=== PATIENT | female | born 1960 | race Hispanic/Latino ===

== ENCOUNTER 2022-03-21 10:58 | Inpatient (IN) | payer SELFPAY ==
[2022-03-21] MEDS ORDERED: MORPHINE 4 MG/1 ML INJ IM ONE (11:04)
[2022-03-21] MEDS ORDERED: ONDANSETRON 4 MG ODT TAB PO ONE (11:04)
--- NOTE | 2022-03-21 11:46 | XRay Report ---
RIGHT ELBOW 4 VIEW(S) INDICATION / CLINICAL INFORMATION: fall, pain and swelling status post fall COMPARISON: None available. FINDINGS: BONES / JOINT(S): Mildly displaced transverse fracture through the base of the olecranon process of t he ulna. The olecranon process fracture fragment is displaced by 1.5 cm. The distal humeral or radial head fracture. Moderate joint effusion. SOFT TISSUES: Prominent posterior soft tissue swelling. ADDITIONAL FINDINGS: None. IMPRESSION: 1. Mildly displaced olecranon process fracture. Signer Name: Sheyla Martin MD Signed: 03/21/2022 11:42 AM Workstation Name: [email or web address]
[2022-03-21] MEDS ORDERED: HYDROmorphone 1 MG/1 ML INJ IV ONE (15:25)
--- NOTE | 2022-03-21 16:41 | Emergency Department Report ---
ED Upper Extremity Inj HPI - General Chief Complaint: Extremity Injury, Upper Stated Complaint: RT ELBOW INJURY/FALL Time Seen by Provider: 03/21/22 13:48 Source: patient Mode of arrival: Ambulatory Limitations: No Limitations - History of Present Illness Initial Comments: This is a 61-year-old female nontoxic, well nourished in appearance, presents to the ED with c/o of right elbow pain x 1day. Patient stated that she had a mechanical trip and fall to the right elbow area. Denies any other injuries or trauma. Patient denies any numbness, tingling, fever, chills, nausea, vomiting, chest pain, shortness of breath, headache, stiff neck. Patient denies any joint swelling or joint redness. Patient stated has decreased range of motion. Patient denies any allergies. MD Complaint: Injury to:: left, elbow -: days(s) Other Extremity Injury: Elbow: Right Severity scale (0 -10): 10 Improves With: immobilization Worsens With: movement of extremity Context: fall Associated Symptoms: denies other symptoms. denies: weakness, numbness, neck pain, suspects foreign body, nausea/vomiting, heard/felt popping sensat - Related Data Allergies Allergy/AdvReac Type Severity Reaction Status Date / Time No Known Allergies Allergy Verified 03/21/22 11:06 ED Review of Systems ROS: Stated complaint: RT ELBOW INJURY/FALL Other details as noted in HPI Comment: All other systems reviewed and negative Constitutional: denies: chills, fever Eyes: denies: eye pain, eye discharge, vision change ENT: denies: ear pain, throat pain Respiratory: denies: cough, shortness of breath, wheezing Cardiovascular: denies: chest pain, palpitations Endocrine: no symptoms reported Gastrointestinal: denies: abdominal pain, nausea, diarrhea Genitourinary: denies: urgency, dysuria, discharge Musculoskeletal: denies: back pain, joint swelling, arthralgia Skin: denies: rash, lesions Neurological: denies: headache, weakness, paresthesias Psychiatric: denies: anxiety, depression Hematological/Lymphatic: denies: easy bleeding, easy bruising ED Physical Exam - General Limitations: No Limitations General appearance: alert, in no apparent distress - Head Head exam: Present: atraumatic, normocephalic - Eye Eye exam: Present: normal appearance - Neck Neck exam: Present: normal inspection, full ROM. Absent: lymphadenopathy - Respiratory Respiratory exam: Absent: respiratory distress - Cardiovascular Cardiovascular Exam: Present: regular rate - Extremities Exam Extremities exam: Present: tenderness, normal capillary refill, joint swelling - Expanded Upper Extremity Exam Right General: Present: normal inspection Shoulder Exam: Present: normal inspection, full ROM. Absent: tenderness, swelling Upper Arm exam: Present: normal inspection, full ROM. Absent: tenderness, swelling Elbow exam: Present: tenderness, swelling, ecchymosis, deformity, effusion. Absent: abrasion, laceration, crepidus, dislocation, erythema Forearm Wrist exam: Present: normal inspection, full ROM. Absent: tenderness, swelling Hand Wrist exam: Present: normal inspection, full ROM. Absent: tenderness, swelling Vascular: Present: normal capillary refill. Absent: vascular compromise (Neurovascular within normal limits) - Back Exam Back exam: Present: normal inspection, full ROM. Absent: tenderness, CVA tenderness (R), CVA tenderness (L), muscle spasm, paraspinal tenderness, vertebral tenderness, rash noted - Neurological Exam Neurological exam: Present: alert, oriented X3, normal gait - Psychiatric Psychiatric exam: Present: normal affect, normal mood - Skin Skin exam: Present: warm, dry, intact, normal color. Absent: rash ED Course Vital Signs 03/21/22 03/21/22 11:02 11:30 Temperature 97.4 F L Pulse Rate 78 Respiratory 18 14 Rate Blood Pressure 127/60 [Left] O2 Sat by Pulse 99 Oximetry - Consultations Consultation #1: 03/21/22 16:46 Patient has been consulted with Lasha Robertson about patient history, physical exam, and imaging results and patient to received a sling with splint and it pain is not controlled to admit with hospitalist Consultation #2: 03/21/22 16:48 Patient has been consulted with Dr. Wheat about patient history, physical exam, and imaging results and accepts patient to services. ED Medical Decision Making - Radiology Data [facility] [address] [place] [address] XRay Report Signed with Jamar Patient: INA ALEXANDER MR#: [id number] : 1960 Acct:[id number] Age/Sex: 61 / F ADM Date: 03/21/22 Loc: ED Attending Dr: Ordering Physician: LAMAR BAEZ Date of Service: 03/21/22 Procedure(s): XR elbow 3+V RT Accession Number(s): [id number] cc: LAMAR BAEZ Fluoro Time In Minutes: ADDENDUM Accounting Machine Operator error in the original report in the Findings section. Please see correction below. No distal humeral or radial head fracture. Signer Name: Sheyla Martin MD Signed: 03/21/2022 1:47 PM Workstation Name: [id number] Addendum Transcribed By: ASIA Addendum Dictated By: Panchito Martin MD Addendum Electronically Authenticated By: Panchito Martin MD Addendum Signed Date/Time: 03/21/221346 DD/ /30/1346 TD/TT: / RIGHT ELBOW 4 VIEW(S) INDICATION / CLINICAL INFORMATION: fall, pain and swelling status post fall COMPARISON: None available. FINDINGS: BONES / JOINT(S): Mildly displaced transverse fracture through the base of the olecranon process of the ulna. The olecranon process fracture fragment is displaced by 1.5 cm. The distal humeral or radial head fracture. Moderate joint effusion. SOFT TISSUES: Prominent posterior soft tissue swelling. ADDITIONAL FINDINGS: None. IMPRESSION: 1. Mildly displaced olecranon process fracture. Signer Name: Sheyla Martin MD Signed: 03/21/2022 11:42 AM Workstation Name: [id number] Transcribed By: DT Dictated By: Panchito Martin MD Electronically Authenticated By: Panchito Martin MD Signed Date/Time: 03/21/22 1142 DD/ 1141 TD/TT: -- [Addendum Report Added by PANCHITO MARTIN at 2022-03-21 13:53:37] [facility] [address] [place] [address] XRay Report Signed Patient: INA ALEXANDER MR#: [id number] : 1960 Acct:[id number] Age/Sex: 61 / F ADM Date: 03/21/22 Loc: ED Attending Dr: Ordering Physician: LAMAR BAEZ Date of Service: 03/21/22 Procedure(s): XR elbow 3+V RT Accession Number(s): [id number] cc: LAMAR BAEZ Fluoro Time In Minutes: RIGHT ELBOW 4 VIEW(S) INDICATION / CLINICAL INFORMATION: fall, pain and swelling status post fall COMPARISON: None available. FINDINGS: BONES / JOINT(S): Mildly displaced transverse fracture through the base of the olecranon process of the ulna. The olecranon process fracture fragment is displaced by 1.5 cm. The distal humeral or radial head fracture. Moderate joint effusion. SOFT TISSUES: Prominent posterior soft tissue swelling. ADDITIONAL FINDINGS: None. IMPRESSION: 1. Mildly displaced olecranon process fracture. Signer Name: Sheyla Martin MD Signed: 03/21/2022 11:42 AM Workstation Name: [id number] Transcribed By: ASIA Dictated By: Panchito Martin MD Electronically Authenticated By: Panchito Martin MD Signed Date/Time: 03/21/22 1142 DD/ 1141 TD/TT: - Medical Decision Making 61-year-old female that presents with displaced left elbow fracture. Patient stable and was examined by me. Patient consulted with hospitalist. Despite giving pain medication patient is still in pain. At this time patient be admitted for intractable pain as well as displaced left elbow fracture. Admitted with hospitalist. At time of admission, the patient does not seem toxic or ill in appearance. No acute signs of distress noted. Patient agrees to admission treatment plan of care. No further questions noted by the patient. Critical care attestation.: If time is entered above; I have spent that time in minutes in the direct care of this critically ill patient, excluding procedure time. ED Disposition Clinical Impression: Intractable pain Fracture of left olecranon process Qualifiers: Encounter type: initial encounter Fracture type: closed Qualified Code(s): S52.022A - Displaced fracture of olecranon process without intraarticular extension of left ulna, initial encounter for closed fracture Disposition: ADMITTED INPATIENT Is pt being admited?: Yes Condition: Stable Time of Disposition: 16:50
--- NOTE | 2022-03-21 16:48 | History and Physical Report ---
History of Present Illness Chief complaint: I fell down and hurt my arm History of present illness: 61 YO Female with OA, Vascular Dementia, Cerebral Atherosclerosis presents to ED for evaluation. Patient reports "I fell down and hurt my arm". Patient states that she tripped and fell from a standing position and landed on her right elbow. Patient states that she experienced pain in her right elbow after impacting left elbow on the ground. Patient states that pain is 10/10, constant, worsened with movement, relieved with movement. Patient also reports pain and swelling to right elbow after fall. Patient transported to [facility] via private vehicle for further care and evaluation of the aforementioned symptoms. The patient was seen and evaluated in the emergency department. All lab and imaging studies reviewed. Patient found to have displaced right olecranon process fracture. Orthopedic surgery service consulted in ED. Patient admitted to medical floor due to increased risk of worsening symptoms after medical stabilization. Patient pending surgical intervention in a.m. Patient fever, chills, chest pain, palpitation, adductive cough, skin rash, recent contact, syncope, known ill contacts, or known exposure to COVID-19. No prior admission for review. No medication listed at time of admission for reconciliation. Advanced care planning conducted in ED. Past History Past Medical History: other (See HPI) Past Surgical History: No surgical history, Other (Reviewed) Social history: . denies: smoking, alcohol abuse, prescription drug abuse Family history: no significant family history, other (Reviewed) Medications and Allergies Allergies Allergy/AdvReac Type Severity Reaction Status Date / Time No Known Allergies Allergy Verified 03/21/22 11:06 Review of Systems Constitutional: no weight loss, no weight gain, no fever, no chills Ears, nose, mouth and throat: no ear pain, no tinnitis, no nose pain, no nasal congestion, no nasal discharge Breasts: no change in shape, no swelling, no mass Cardiovascular: no chest pain, no palpitations, no rapid/irregular heart beat, no syncope, no lightheadedness, no shortness of breath, no dyspnea on exertion Respiratory: no cough, no cough with sputum, no excessive sputum, no hemoptysis, no shortness of breath Gastrointestinal: no abdominal pain, no nausea, no change in bowel habits, no hematemesis Genitourinary Female: no pelvic pain, no flank pain, no dysuria, no urinary frequency, no urgency Rectal: no pain, no incontinence, no bleeding Musculoskeletal: no neck stiffness, no neck pain, no shooting arm pain, no other Integumentary: no rash, no pruritis, no redness, no sores, no wounds Neurological: no head injury, no paralysis, no weakness, no parathesias, no seizures, no tremors, no lack of coordination Psychiatric: no anxiety, no change in sleep habits, no hypersomnia, no change in appetite, no change in libido, no disorientation Endocrine: no cold intolerance, no excessive thirst, no excessive sweating, no flushing Hematologic/Lymphatic: no easy bruising, no easy bleeding Allergic/Immunologic: no urticaria, no wheezing Exam - Constitutional Vitals: Temp Pulse Resp BP Pulse Ox 97.4 F L 78 14 127/60 99 03/21/22 11:02 03/21/22 11:02 03/21/22 11:30 03/21/22 11:02 03/21/22 11:02 General appearance: Present: mild distress - EENT Eyes: Present: PERRL ENT: hearing intact, clear oral mucosa - Neck Neck: Present: supple, normal ROM - Respiratory Respiratory effort: normal Respiratory: bilateral: CTA - Cardiovascular Heart Sounds: Present: S1 & S2. Absent: rub, click - Extremities Extremities: pulses symmetrical, No edema Extremity abnormal: edema, tenderness, other (Right elbow) Peripheral Pulses: within normal limits - Abdominal General gastrointestinal: Present: soft, non-tender, non-distended, normal bowel sounds Female genitourinary: Present: normal - Integumentary Integumentary: Present: clear, warm, dry - Musculoskeletal Musculoskeletal: gait normal, strength equal bilaterally - Psychiatric Psychiatric: appropriate mood/affect, intact judgment & insight - Neurologic Neurologic: CNII-XII intact, moves all extremities Assessment and Plan - Patient Problems (1) Fracture of left olecranon process Current Visit: Yes Status: Acute Qualifiers: Encounter type: initial encounter Fracture type: closed Qualified Code(s): S52.022A - Displaced fracture of olecranon process without intraarticular extension of left ulna, initial encounter for closed fracture Plan to address problem: X-ray right elbow, (2) Vascular dementia Current Visit: Yes Status: Acute Qualifiers: Dementia behavioral disturbance: without behavioral disturbance Qualified Code(s): F01.50 - Vascular dementia without behavioral disturbance Plan to address problem: Verbal prompting, verbal redirection, benzodiazepine therapy as clinically indicated. (3) Cerebral atherosclerosis Current Visit: Yes Status: Acute Plan to address problem: Risk factor reduction, antiplatelet therapy as clinically indicated, supportive care. (4) Osteoarthritis Current Visit: Yes Status: Acute Plan to address problem: Pain control, NSAID therapy as clinically indicated. (5) Intractable pain Current Visit: Yes Status: Acute Plan to address problem: Pain control, pain control protocol. Continue medical management. (6) DVT prophylaxis Current Visit: Yes Status: Acute Plan to address problem: SCD to bilateral lower extremities while in bed (7) Advance care planning Current Visit: Yes Status: Acute Plan to address problem: Disease education conducted, care plan discussed, diagnoses discussed, prognosis discussed, patient acknowledges understanding and agreement with care plan, +30 minutes. (8) Preventative health care Current Visit: Yes Status: Acute Plan to address problem: Patient counseled regarding home safety precaution, outpatient follow-up with primary care physician for all age and risk factor appropriate screening test. +30 minutes.
[2022-03-21] MEDS ORDERED: ALBUTEROL 2.5 MG/3 ML NEBU IH PRN (17:00)
[2022-03-21] MEDS ORDERED: ACETAMINOPHEN 325 MG TAB PO PRN (17:00)
[2022-03-21] MEDS ORDERED: HYDROmorphone 0.5 MG/0.5 ML INJ IV PRN (18:00)
[2022-03-21] MEDS ORDERED: ONDANSETRON 4 MG/2 ML INJ IV PRN (18:00)
[2022-03-21] MEDS: oxyCODONE /ACETAMINOPHEN 5-325MG TAB PO PRN (20:14)
[2022-03-21] MEDS: SODIUM CHLORIDE 0.9% 1000 ML 1,000 ML IV SCH (20:19)
[2022-03-21] MEDS: HYDROmorphone 0.5 MG/0.5 ML INJ IV PRN (22:51)
[2022-03-22 00:44] LABS: Alanine Aminotransferase 19 units/L (7-56); Albumin 4.1 g/dL (3.9-5); Blood Urea Nitrogen 10 mg/dL (7-17); Calcium 9.4 mg/dL (8.4-10.2); Hemolysis Index 39
[2022-03-22 00:45] LABS: BUN/Creatinine Ratio 17
[2022-03-22 01:13] LABS: Basophils % (Auto) 0.7 % (0.0-1.8); Eosinophils % (Auto) 0.5 % (0.0-4.3); Hematocrit 36.8 % (30.3-42.9); Hemoglobin 12.1 gm/dl (10.1-14.3); Lymphocytes # (Auto) 1.7 K/mm3 (1.2-5.4); Lymphocytes % (Auto) 28.7 % (13.4-35.0); Mean Corpuscular HGB Conc 33 % (30-34); Mean Corpuscular Volume 103 fl (79-97); Monocytes # (Auto) 0.7 K/mm3 (0.0-0.8); Monocytes % (Auto) 11.4 % (0.0-7.3); Red Blood Count 3.59 M/mm3 (3.65-5.03); Red Cell Distribution Width 13.2 % (13.2-15.2)
[2022-03-22 01:22] LABS: Platelet Count 131 K/mm3 (140-440)
[2022-03-22] MEDS: HYDROmorphone 0.5 MG/0.5 ML INJ IV PRN ×5 (02:47→20:44)
[2022-03-22] MEDS: oxyCODONE /ACETAMINOPHEN 5-325MG TAB PO PRN ×2 (06:38→23:00)
--- NOTE | 2022-03-22 14:10 | Progress Note ---
Assessment and Plan (1) Fracture of left olecranon process Current Visit: Yes Status: Acute Qualifiers: Encounter type: initial encounter Fracture type: closed Qualified Code(s): S52.022A - Displaced fracture of olecranon process without intraarticular extension of left ulna, initial encounter for closed fracture Plan to address problem: X-ray right elbow, (2) Vascular dementia Current Visit: Yes Status: Acute Qualifiers: Dementia behavioral disturbance: without behavioral disturbance Qualified Code(s): F01.50 - Vascular dementia without behavioral disturbance Plan to address problem: Verbal prompting, verbal redirection, benzodiazepine therapy as clinically indicated. (3) Cerebral atherosclerosis Current Visit: Yes Status: Acute Plan to address problem: Risk factor reduction, antiplatelet therapy as clinically indicated, supportive care. (4) Osteoarthritis Current Visit: Yes Status: Acute Plan to address problem: Pain control, NSAID therapy as clinically indicated. (5) Intractable pain Current Visit: Yes Status: Acute Plan to address problem: Pain control, pain control protocol. Continue medical management. (6) DVT prophylaxis Current Visit: Yes Status: Acute Plan to address problem: SCD to bilateral lower extremities while in bed (7) Advance care planning Current Visit: Yes Status: Acute Plan to address problem: Disease education conducted, care plan discussed, diagnoses discussed, prognosis discussed, patient acknowledges understanding and agreement with care plan, +30 minutes. (8) Preventative health care Current Visit: Yes Status: Acute Plan to address problem: Patient counseled regarding home safety precaution, outpatient follow-up with primary care physician for all age and risk factor appropriate screening test. +30 minutes. Subjective Date of service: 03/22/22 Objective - Constitutional Vitals: Vital Signs - 12hr 03/22/22 03/22/22 03/22/22 04:58 08:11 09:46 Temperature 98.7 F 98.0 F Pulse Rate 66 72 Respiratory 20 18 Rate Blood Pressure 130/66 147/60 O2 Sat by Pulse 94 98 98 Oximetry 03/22/22 13:42 Temperature Pulse Rate Respiratory Rate Blood Pressure O2 Sat by Pulse 98 Oximetry - Labs CBC & Chem 7: 03/21/22 23:04 03/21/22 23:04 Labs: Abnormal lab results 03/21/22 03/21/22 Range/Units 23:04 23:04 RBC 3.59 L (3.65-5.03) M/mm3 MCV 103 H (79-97) fl MCH 34 H (28-32) pg Plt Count 131 L (140-440) K/mm3 Mclean % (Auto) 11.4 H (0.0-7.3) % Sodium 135 L (137-145) mmol/L Glucose 101 H (65-100) mg/dL
--- NOTE | 2022-03-22 14:25 | Consultation ---
History of Present Illness - HPI Consult date: 03/22/22 Consult reason: fracture History of present illness: 61 y/o female with c/o right elbow pain and swelling after falling from high chair prior to ED presentation, states unable move arm w/o pain....plain xrays done in ED revealed a displaced olecranon fracture... Past History Past Medical History: other (See HPI) Past Surgical History: No surgical history, Other (Reviewed) Social history: . denies: smoking, alcohol abuse, prescription drug abuse Family history: no significant family history, other (Reviewed) Medications and Allergies Allergies Allergy/AdvReac Type Severity Reaction Status Date / Time No Known Allergies Allergy Verified 03/21/22 11:06 Home Medications Medication Instructions Recorded Confirmed Last Taken Type No Known Home Medications [No 03/21/22 03/21/22 Unknown History Reported Home Medications] Active Meds: Active Medications Acetaminophen (Acetaminophen 325 Mg Tab) 650 mg PO Q4H PRN PRN Reason: Pain MILD(1-3)/Fever >100.5/NUNES Albuterol (Albuterol 2.5 Mg/3 Ml Nebu) 2.5 mg IH Q4HRT PRN PRN Reason: Shortness Of Breath Hydromorphone HCl (Hydromorphone 0.5 Mg/0.5 Ml Inj) 0.5 mg IV Q4H PRN PRN Reason: Pain , Severe (7-10) Last Admin: 03/22/22 12:10 Dose: 0.5 mg Sodium Chloride (Nacl 0.9% 1000 Ml) 1,000 mls @ 42 mls/hr IV DIRECT JOSE Last Admin: 03/21/22 20:19 Dose: 42 mls/hr Ondansetron HCl (Ondansetron 4 Mg/2 Ml Inj) 4 mg IV Q8H PRN PRN Reason: Nausea And Vomiting Last Admin: 03/22/22 05:15 Dose: 4 mg Oxycodone/Acetaminophen (Oxycodone /Acetaminophen 5-325mg Tab) 1 tab PO Q6H PRN PRN Reason: Pain, Moderate (4-6) Last Admin: 03/22/22 06:38 Dose: 1 tab Sodium Chloride (Sodium Chloride 0.9% 10 Ml Flush Syringe) 10 ml IV BID JOSE Last Admin: 03/22/22 12:10 Dose: 10 ml Sodium Chloride (Sodium Chloride 0.9% 10 Ml Flush Syringe) 10 ml IV PRN PRN PRN Reason: LINE FLUSH Physical Examination - Physical exam Narrative exam: Right Elbow - moderate swelling, skin intact, + deformity noted at olecranon process, tender at proximal ulna, distal n/v intact... Eyes: PERRL ENT: Positive: clear oral mucosa Respiratory effort: normal Respiratory: bilateral: CTA Rhythm: regular Heart Sounds: Positive: S1 & S2 General gastrointestinal: Positive: soft, non-tender, non-distended, normal bowel sounds Integumentary: clear, warm, dry Neurologic: Positive: CNII-XII intact, moves all extremities, gait normal. Negative: focal deficits - Cervical Spine Neck pain: none Tenderness with palpation: none Full ROM: yes ROM: flexion: normal ROM: extension: normal ROM: rotation right: normal ROM: rotation left: normal ROM: lateral flexion right: normal ROM: lateral flexion left: normal - Lumbar Spine Back pain: none Tenderness with palpation: none Appearance: normal Full ROM: yes ROM: flexion: normal ROM: extension: normal ROM: rotation right: normal ROM: rotation left: normal ROM: lateral flexion right: normal ROM: lateral flexion left: normal Assessment and Plan Assesment- Displacement right olecranon fracture Plan - will require ORIF proximal ulna...
[2022-03-22] MEDS: SODIUM CHLORIDE 0.9% 1000 ML 1,000 ML IV SCH (20:51)
[2022-03-22 23:16] LABS: INR 0.84 (0.87-1.13)
[2022-03-22 23:18] LABS: Blood Urea Nitrogen 8 mg/dL (7-17); Calcium 9.1 mg/dL (8.4-10.2); Hemolysis Index 16
[2022-03-22 23:20] LABS: BUN/Creatinine Ratio 13
[2022-03-23] MEDS: HYDROmorphone 0.5 MG/0.5 ML INJ IV PRN ×2 (01:10→06:22)
[2022-03-23] MEDS ORDERED: LACTATED RINGERS 1,000 ML ONE (07:01)
[2022-03-23] MEDS ORDERED: propofoL 200 MG/20 ML VIAL IV ONE (07:06)
[2022-03-23] MEDS ORDERED: ONDANSETRON 4 MG/2 ML INJ ONE (07:06)
[2022-03-23] MEDS ORDERED: ePHEDrine SULFATE 50 MG/1 ML INJ ONE (07:06)
[2022-03-23] MEDS ORDERED: PHENYLEPHRINE/NS 1,000 MCG/10 ML SYRINGE (OR USE) IV ONE (07:06)
[2022-03-23] MEDS ORDERED: dexAMETHasone 20 MG/5 ML VIAL ONE (07:06)
[2022-03-23] MEDS ORDERED: LIDOCAINE MPF (2%) 20 MG/1 ML VIAL 5 ML ONE (07:06)
[2022-03-23] MEDS ORDERED: fentaNYL 100 MCG/2 ML INJ ONE (07:06)
[2022-03-23] MEDS ORDERED: LACTATED RINGERS 1,000 ML IV SCH (07:30)
--- NOTE | 2022-03-23 07:32 | Anesthesia Day of Surgery ---
Anesthesia Day of Surgery - Day of Surgery Patient Examined: Yes Patient H&P Reviewed: Yes Patient is NPO: Yes
--- NOTE | 2022-03-23 07:32 | Anesthesia Consultation ---
Anesthesia Consult and Med Hx Date of service: 03/23/22 - Airway Anesthetic Teeth Evaluation: Dentures ROM Head & Neck: Adequate Mental/Hyoid Distance: Adequate Mallampati Class: Class II Intubation Access Assessment: Probably Good - Pulmonary Exam CTA: Yes - Cardiac Exam Cardiac Exam: RRR - Pre-Operative Health Status ASA Pre-Surgery Classification: ASA3 Proposed Anesthetic Plan: General Nerve Block: supraclavicular - Pulmonary Hx Smoking: No Hx Respiratory Symptoms: No - Cardiovascular System Hx Hypertension: No Hx Heart Attack/AMI: No Hx Cardia Arrhythmia: No - Central Nervous System Hx Neuromuscular Disorder: No (h/o vascular dementia) - Gastrointestinal Hx Gastroesophageal Reflux Disease: No - Endocrine Hx Renal Disease: No Hx Liver Disease: No - Hematic Hx Anemia: No - Other Systems Hx Cancer: No - Additional Comments Anesthesia Medical History Comments: No GAC. No FHAC.
[2022-03-23] MEDS ORDERED: HYDROmorphone 0.5 MG/0.5 ML INJ IV PRN (07:42)
[2022-03-23] MEDS ORDERED: fentaNYL 100 MCG/2 ML INJ IV NR (07:42)
[2022-03-23] MEDS ORDERED: ONDANSETRON 4 MG/2 ML INJ IV PRN (07:42)
[2022-03-23] MEDS ORDERED: BUPIVACAINE-EPINEPHRINE/PF 0.25%-1:200,000 (30 ML) VIAL INFILTRATI ONE (07:45)
[2022-03-23] MEDS ORDERED: BUPIVACAINE/PF (0.5%) 5 MG/1 ML 10 ML VIAL INFILTRATI ONE ×2 (07:50→09:15)
[2022-03-23] MEDS ORDERED: MIDAZOLAM 2 MG/2 ML INJ IV NR (08:00)
[2022-03-23] MEDS ORDERED: ceFAZolin/Water 2 GM/20 ML 2 GM/20 ML SYRINGE IV ONE (08:13)
[2022-03-23] MEDS ORDERED: SODIUM CHLORIDE 0.9% IRR 1,500 ML BOTTLE IR ONE (09:15)
[2022-03-23] MEDS ORDERED: ceFAZolin/STERILE WATER 2 GM/20 ML SYRINGE IV NR (10:00)
[2022-03-23] MEDS ORDERED: ACETAMINOPHEN 650 MG RECT SUPP PR PRN (10:06)
[2022-03-23] MEDS ORDERED: KETOROLAC 30 MG/1 ML INJ IV PRN (10:06)
--- NOTE | 2022-03-23 10:06 | Procedure Note ---
Date of procedure: 03/23/22 Pre-op diagnosis: Displaced right olecranon fracture Post-op diagnosis: same Procedure: Open reduction internal fixation right proximal ulna Procedure The patient was brought to the OR after being given a scalene nerve block in preop holding the right upper extremity was prepped and draped in the usual sterile manner. A timeout procedure was done to identify the patient and the correct operative site. The arm was exsanguinated followed by inflation of the pneumatic tourniquet to 250 mmHg a posterior incision was made over the proximal forearm and curved slightly medial around the ulnar and then supple and somewhat upward along the distal humerus care was taken to protect neurovascular structures and skin flaps the fracture site was then identified and using a combination of blunt dissection as well as periosteal elevators the fracture site was identified fracture hematoma was then evacuated the articular surface was inspected there. Not to be any outward damage to the trochlear notch next the proximal fragment was manipulated into a reduced position and held by way of K wires next a locked olecranon plate was applied with screws of various sizes AP and lateral views were obtained via C arm and showed good reduction of the fracture and placement of the hardware following this the wound was copiously irrigated and was closed in a standard routine fashion postop dressings were applied as well as a well-padded posterior mold patient tolerated procedure there were no complications and she was sent to postanesthesia recovery in a stable condition Anesthesia: MAC, regional Surgeon: FRANCISCO LIMA Estimated blood loss: minimal Pathology: none Condition: stable Disposition: PACU
--- NOTE | 2022-03-23 10:36 | XRay Report ---
XR elbow 2V RT INDICATION / CLINICAL INFORMATION: DISPLACED RIGHT OLECRANON PROCESS SURGERY. COMPARISON: 03/21/2022. FINDINGS: Satisfactory postoperative radiographic appearance of the olecranon fixation with dorsal plate and sc rew fixation construct. Fracture alignment is near-anatomic. No new skeletal abnormality. Signer Name: José Miguel Arana MD Signed: 03/23/2022 10:31 AM Workstation Name: [id number]
[2022-03-23] MEDS ORDERED: ACETAMINOPHEN 325 MG TAB PO PRN (10:40)
--- NOTE | 2022-03-23 11:04 | Post Anesthesia Evaluation ---
- Post Anesthesia Evaluation Patient Participated: Yes Airway Patent: Yes Stable Respiratory Function: Yes Nausea/Vomiting: No Temp > 96.8F: Yes Pain Manageable: Yes Adequeate Hydration: Yes Anesthesia Complications: No
--- NOTE | 2022-03-23 14:28 | Progress Note ---
Assessment and Plan (1) Fracture of left olecranon process Current Visit: Yes Status: Acute Qualifiers: Encounter type: initial encounter Fracture type: closed Qualified Code(s): S52.022A - Displaced fracture of olecranon process without intraarticular extension of left ulna, initial encounter for closed fracture Plan to address problem: Status post open reduction internal fixation right proximal ulna today Orthopedics following, wait for PT OT eval (2) Vascular dementia Current Visit: Yes Status: Acute Qualifiers: Dementia behavioral disturbance: without behavioral disturbance Qualified Code(s): F01.50 - Vascular dementia without behavioral disturbance Plan to address problem: Verbal prompting, verbal redirection, benzodiazepine therapy as clinically indicated. (3) Cerebral atherosclerosis Current Visit: Yes Status: Acute Plan to address problem: Risk factor reduction, antiplatelet therapy as clinically indicated, supportive care. (4) Osteoarthritis Current Visit: Yes Status: Acute Plan to address problem: Pain control, NSAID therapy as clinically indicated. (5) Intractable pain Current Visit: Yes Status: Acute Plan to address problem: Pain control, pain control protocol. Continue medical management. (6) DVT prophylaxis Current Visit: Yes Status: Acute Plan to address problem: SCD to bilateral lower extremities while in bed (7) Advance care planning Current Visit: Yes Status: Acute Plan to address problem: Disease education conducted, care plan discussed, diagnoses discussed, prognosis discussed, patient acknowledges understanding and agreement with care plan, +30 minutes. (8) Preventative health care Current Visit: Yes Status: Acute Plan to address problem: Patient counseled regarding home safety precaution, outpatient follow-up with primary care physician for all age and risk factor appropriate screening test. +30 minutes. Subjective Date of service: 03/23/22 Interval history: Patient seen and examined. Medical records and medication list reviewed. No acute event overnight noted by the RN. Patient had surgery today. States that feeling better PT OT eval pending Discussed plan of care at bedside with patient. Objective - Exam Narrative Exam: GENERAL: well-developed and well-nourished elderly female lying on bed appeared to be in no discomfort. HEENT: Normocephalic. Atraumatic. No conjunctival congestion or icterus. Patient has moist mucous membranes. NECK: Supple. Trachea midline. CHEST/LUNGS: Clear to auscultated bilaterally, breathing nonlabored. No wheezes crackles or rhonchi. HEART/CARDIOVASCULAR: Regular in rate and rhythm. S1 and S2 positive. ABDOMEN: Abdomen is soft, nontender. Patient has normal bowel sounds. SKIN: There is no rash. Warm and dry. NEURO: No focal motor deficit. Follows command. MUSCULOSKELETAL: Right upper extremity with sling and surgical dressing EXTRIMITY: No edema, no cyanosis or clubbing. PSYCH: Cooperative. - Constitutional Vitals: Vital Signs - 12hr 03/23/22 03/23/22 03/23/22 06:27 07:30 07:45 Temperature 98.5 F 97.9 F 97.9 F Pulse Rate 70 61 61 Respiratory 20 18 18 Rate Blood Pressure 118/79 118/79 Blood Pressure 137/68 [Left] O2 Sat by Pulse 95 99 99 Oximetry 03/23/22 03/23/22 03/23/22 08:00 08:05 08:10 Temperature Pulse Rate 58 L 64 66 Respiratory 18 12 14 Rate Blood Pressure 124/80 122/78 117/82 Blood Pressure [Left] O2 Sat by Pulse 99 99 100 Oximetry 03/23/22 03/23/22 03/23/22 09:59 10:04 10:07 Temperature 97.6 F Pulse Rate 120 H 117 H Respiratory 12 13 Rate Blood Pressure 150/67 112/65 Blood Pressure [Left] O2 Sat by Pulse 100 100 98 Oximetry 03/23/22 03/23/22 03/23/22 10:09 10:15 10:30 Temperature Pulse Rate 96 H 74 80 Respiratory 15 14 16 Rate Blood Pressure 125/47 130/58 124/55 Blood Pressure [Left] O2 Sat by Pulse 100 96 98 Oximetry 03/23/22 03/23/22 03/23/22 10:45 11:00 11:38 Temperature 97.8 F Pulse Rate 76 82 92 H Respiratory 17 20 16 Rate Blood Pressure 128/58 126/57 129/70 Blood Pressure [Left] O2 Sat by Pulse 97 99 96 Oximetry - Labs CBC & Chem 7: 03/21/22 23:04 03/22/22 21:57 Labs: Abnormal lab results 03/22/22 03/22/22 Range/Units 21:57 21:57 INR 0.84 L (0.87-1.13) Carbon Dioxide 18 L (22-30) mmol/L
[2022-03-23] MEDS: MORPHINE 4 MG/1 ML INJ IV PRN (23:09)
[2022-03-24] MEDS: MORPHINE 4 MG/1 ML INJ IV PRN ×4 (03:13→16:56)
[2022-03-24] MEDS: oxyCODONE /ACETAMINOPHEN 5-325MG TAB PO PRN ×2 (05:47→14:57)
[2022-03-24 12:10] VITALS: BP 117/53
--- NOTE | 2022-03-24 16:37 | Discharge Summary ---
Providers - Providers Date of Admission: 03/21/22 16:50 Date of discharge: 03/24/22 Attending physician: ALDAIR MCCAIN 03/22/22 09:24 Consult to Physician [CONS] Routine Comment: Consulting Provider: FRANCISCO LIMA Physician Instructions: Reason For Exam: olecranon process fracture 03/23/22 10:07 Consult to Case Management [CONS] Routine Services Needed at Discharge: Other Notified:: Yes Additional Physician Instructions: Assess Discharge needs. Physical Therapy Evaluation and Treat [CONS] Routine Comment: Reason For Exam: Eval and Treat Primary care physician: ONLINE PROGRAM COORDINATOR Hospitalization Condition: Stable Hospital course: (1) Fracture of left olecranon process Current Visit: Yes Status: Acute Qualifiers: Encounter type: initial encounter Fracture type: closed Qualified Code(s): S52.022A - Displaced fracture of olecranon process without intraarticular extension of left ulna, initial encounter for closed fracture Plan to address problem: Status post open reduction internal fixation right proximal ulna 03/23/22 Orthopedics following, wait for PT OT eval (2) Vascular dementia Current Visit: Yes Status: Acute Qualifiers: Dementia behavioral disturbance: without behavioral disturbance Qualified Code(s): F01.50 - Vascular dementia without behavioral disturbance Plan to address problem: Verbal prompting, verbal redirection, benzodiazepine therapy as clinically indicated. (3) Cerebral atherosclerosis Current Visit: Yes Status: Acute Plan to address problem: Risk factor reduction, antiplatelet therapy as clinically indicated, supportive care. (4) Osteoarthritis Current Visit: Yes Status: Acute Plan to address problem: Pain control, NSAID therapy as clinically indicated. (5) Intractable pain Current Visit: Yes Status: Acute Plan to address problem: Pain control, pain control protocol. Continue medical management. Disposition: 30 STILL A PATIENT Time spent for discharge: 34 minutes Core Measure Documentation - Palliative Care Palliative Care/ Comfort Measures: Not Applicable - Core Measures Any of the following diagnoses?: none Exam - Physical Exam Narrative exam: GENERAL: well-developed and well-nourished elderly female lying on bed appeared to be in no discomfort. HEENT: Normocephalic. Atraumatic. No conjunctival congestion or icterus. Patient has moist mucous membranes. NECK: Supple. Trachea midline. CHEST/LUNGS: Clear to auscultated bilaterally, breathing nonlabored. No wheezes crackles or rhonchi. HEART/CARDIOVASCULAR: Regular in rate and rhythm. S1 and S2 positive. ABDOMEN: Abdomen is soft, nontender. Patient has normal bowel sounds. SKIN: There is no rash. Warm and dry. NEURO: No focal motor deficit. Follows command. MUSCULOSKELETAL: Right upper extremity with sling and surgical dressing EXTRIMITY: No edema, no cyanosis or clubbing. PSYCH: Cooperative. - Constitutional Vitals: Temp Pulse Resp BP Pulse Ox 99.3 F 59 L 18 117/53 100 03/24/22 11:44 03/24/22 11:44 03/24/22 11:44 03/24/22 11:44 03/24/22 11:44 Plan Activity: advance as tolerated Weight Bearing Status: Non-Weight Bearing Diet: low fat, low salt Special Instructions: occupational therapy (outpt ) Follow up with: FRANCISCO LIMA MD [Staff Physician] - 7 Days Prescriptions: Docusate Sodium [Colace] 100 mg PO BID PRN #20 capsule PRN Reason: Constipation oxyCODONE /ACETAMINOPHEN [Percocet 5/325 mg] 1 tab PO Q6H PRN #20 tablet PRN Reason: Pain, Moderate (4-6)
== END 2022-03-24 18:31 | disposition home or self-care (01) | DRG 512 ==
LOC: ED 10:58 → 3A 16:50
PROVIDERS: ADMIT Internal Medicine; ATTEND Internal Medicine
PROC: 0PSK04Z Reposition Right Ulna with Internal Fixation Device, Open Approach (ICD-10-PCS; principal; 2022-03-23)
DX: S52.021A Displaced fracture of olecranon process without intraarticular extension of right ulna, initial encounter for closed fracture (principal); F01.50 Vascular dementia, unspecified severity, without behavioral disturbance, psychotic disturbance, mood disturbance, and anxiety; I67.2 Cerebral atherosclerosis; M19.90 Unspecified osteoarthritis, unspecified site; W18.39XA Other fall on same level, initial encounter; Y93.89 Activity, other specified; Y92.89 Other specified places as the place of occurrence of the external cause; Y99.8 Other external cause status
CPT/HCPCS: 36415; 64450; 80048; 80053; 85025; 85610; 96372; 96374; 99285; G0378; J3490; C1713; J0690; J1100; J1170; J2270; J2370; J2405; J2704; J3010; J7030; J7120; Q0162